=== PATIENT | female | born 1960 | race Caucasian/White ===

== ENCOUNTER → 2020-12-09 | Outpatient (CLI) | payer OTHER ==
[2020-11-18 15:00] VITALS: BP 132/83
[~2020-12-09] MED LIST: AMIT10TA PO; CETI-161 PO; IBUP-1007 PO; LISI2.5T12 PO; MULT-445 PO; PROVENTIL HFA6.7 G2 INH; UMEC1DIS IH; [UNRECOGNIZED DRUG - REMARK]
--- NOTE | 2020-12-09 11:52 | RAD ---
EXAM: Dual modality PET-CT Scan DATE: 12/09/2020 RADIOPHARMACEUTICAL: 13.97 mCi F-18 fluorodeoxyglucose (FDG) IV. CLINICAL HISTORY: Lung cancer staging. COMPARISON: 11/15/2020 and 11/11/2020 TECHNIQUE: Approximately 45 minutes after tracer administration, routine, attenuation-corrected Posit jhony Emission Tomography (PET) images were obtained from the level of the base of the skull through th e level of the mid thighs. Tomographic reconstructions are reviewed in coronal, transaxial and sagitt al planes. Non-contrast CT imaging was performed for attenuation correction and localization purpose s only. These images do not constitute a diagnostic-quality CT examination and were not used to diag nose disease independently of the PET images. The blood glucose level was 96 mg/dL at the time of FDG administration. *One or more of the following individualized dose reduction techniques were utilized for this examina tion: 1. Automated exposure control. 2. Adjustment of the mA and/or kV according to patient size. 3. Use of iterative reconstruction technique. FINDINGS: There is intense radiotracer activity with a maximum SUV of 8.1 associated with a 3.5 cm ma ss within the right lower lobe. There is intense radiotracer activity within maximum SUV of 6.8 withi n an adjacent 2.1 cm satellite nodule. There is no abnormal radiotracer activity above the blood pool associated with bilateral hilar lymph nodes, maximum SUV of which measures 2.6. There is no abnormal extrathoracic radiotracer activity to suggest malignancy. There is physiologic a ctivity within the bowel and renal collecting system. There is physiologic muscular activity and phys iologic activity involving the vocal cords. There is a small focus of increased radiotracer activity associated with the left nasal soft tissues which is likely inflammatory. There are similar suspected inflammatory or physiologic activity involving the posterior nasopharyngeal soft tissues. The CT portion of the exam demonstrates a 3.5 cm mass with adjacent 2.1 cm satellite mass within the right lower lobe. There is mild emphysema. There is no infiltrate, pleural effusion or pneumothorax. The heart is upper normal in size. No pathologically enlarged mediastinal or hilar lymph node is seen . There is a 1.6 cm left thyroid nodule. There is no mass effect or midline shift involving the visualized portions the brain. There is mild c erebral volume loss. There is no neck lymphadenopathy. No hepatic lesion is seen on this noncontrast exam. The gallbladder, pancreas, spleen and adrenal glands are unremarkable. No renal lesion is seen. There is no appendicitis. There is no bowel obstruction. The bladder, uterus and ovaries are unremark able. There is aortic atherosclerosis. There is no mesenteric or retroperitoneal lymphadenopathy. The re is degenerative change involving the spine. There is no acute or suspicious osseous lesion. IMPRESSION: 1. Radiotracer avid 3.5 cm right lower lobe mass with a maximum SUV of 8.1, consistent with reported biopsy-proven malignancy. There is an adjacent satellite nodule or metastatic perihilar lymph node me asuring 2.1 cm with a maximum SUV of 6.8. 2. Nonspecific radiotracer activity within bilateral hilar lymph nodes with a maximum SUV of 2.6. Thi s is not significantly above the blood pool. 3. No convincing abnormal extrathoracic radiotracer activity. There is physiologic activity described above 4. Pulmonary emphysema. 5. Small left thyroid nodule. This demonstrates no abnormal radiotracer activity and may be cystic. T his can be better assessed with a thyroid sonogram. 6. Note is made that indeterminate right renal lesion demonstrated on a prior contrast-enhanced CT is not well characterized on the current exam. Please refer to the prior CT report dated 11/11/2020 for f urther imaging recommendations. Electronically signed by: Leyla Garcia MD (12/09/2020 11:50 AM) [id number]
== END ==
LOC: PETSC 10:00
PROVIDERS: ATTEND Internal Medicine Hematology & Oncology
DX: C34.11 Malignant neoplasm of upper lobe, right bronchus or lung (principal); J43.9 Emphysema, unspecified; E04.1 Nontoxic single thyroid nodule; N28.9 Disorder of kidney and ureter, unspecified; I70.0 Atherosclerosis of aorta; M47.819 Spondylosis without myelopathy or radiculopathy, site unspecified
CPT/HCPCS: 78815; A9552

== ENCOUNTER → 2021-01-02 | Outpatient (CLI) | payer OTHER ==
[2020-11-18 15:00] VITALS: BP 132/83
[2021-01-02 14:57] LABS: BASO % 1 % (0-3); EOS # 0.1 x10^3/uL (0.0-0.7); EOS % 4 % (0-3); HEMATOCRIT 37.3 % (36.0-47.0); HEMOGLOBIN 12.4 g/dL (12.0-15.5); LYMPH # 1.2 x10^3/uL (1.0-4.8); LYMPH % 28 % (24-48); MEAN CORPUSCULAR HEMOGLOBIN 33 pg (25-35); MEAN CORPUSCULAR HGB CONC 33 g/dL (31-37); MEAN CORPUSCULAR VOLUME 99 fL (79-100); MONO # 0.3 x10^3/uL (0.0-1.1); MONO % 7 % (0-9); NEUT # 2.5 x10^3/uL (1.8-7.7); NEUT % 61 % (31-73); PLATELET COUNT 213 x10^3/uL (140-400); RED BLOOD COUNT 3.79 x10^6/uL (3.50-5.40); RED CELL DISTRIBUTION WIDTH 14.6 % (11.5-14.5); WHITE BLOOD COUNT 4.2 x10^3/uL (4.0-11.0)
[2021-01-02 16:05] LABS: CALCIUM 9.1 mg/dL (8.5-10.1); CREATININE 1.1 mg/dL (0.6-1.0); POTASSIUM 4.3 mmol/L (3.5-5.1)
[2021-01-02 16:11] LABS: ALBUMIN 3.3 g/dL (3.4-5.0); ALBUMIN/GLOBULIN RATIO 0.9 (1.0-1.7); TOTAL BILIRUBIN 0.1 mg/dL (0.2-1.0); TOTAL PROTEIN 6.9 g/dL (6.4-8.2)
== END ==
LOC: ONCLAB 14:04
PROVIDERS: ATTEND Internal Medicine Hematology & Oncology
DX: C34.11 Malignant neoplasm of upper lobe, right bronchus or lung (principal)
CPT/HCPCS: 36415; 80053; 85025

== ENCOUNTER 2021-01-21 23:39 | Emergency (ER) | payer SELFPAY ==
[~2021-01-21] VITALS: Ht 167.6 cm; Wt 86.4 kg
--- NOTE | 2021-01-22 00:05 | PHYS DOC ---
Past Medical History Smoking Status: Current Every Day Smoker General Adult EDM: Chief Complaint: OTHER COMPLAINTS HPI: HPI: Patient is a 60 year old year old female that presents for evaluation of a sinus infection. Patient has past medical history of lung cancer and is schedule for radiation therapy on Saturday. Patient states on Saturday she had a covid test performed that was ordered by her PCP and it was negative. While at the covid clinic patient was told that she may have a sinus infection and she needed to see her PCP for an Rx antibiotic. Patients PCP office was closed and patient was unable to follow up with her PCP. Patient states she called her onocologist office and was advised to come the the ER for admission to the hospital. Review of Systems: Review of Systems: Constitutional: Denies fever or chills. [] Eyes: Denies change in visual acuity. [] HENT: Positive nasal congestion denies sore throat. [] Respiratory: Denies cough or shortness of breath. [] Cardiovascular: Denies chest pain or edema. [] GI: Denies abdominal pain, nausea, vomiting, bloody stools or diarrhea. [] : Denies dysuria. [] Musculoskeletal: Denies back pain or joint pain. [] Integument: Denies rash. [] Neurologic: Denies headache, focal weakness or sensory changes. [] Endocrine: Denies polyuria or polydipsia. [] Lymphatic: Denies swollen glands. [] Psychiatric: Denies depression or anxiety. [] Heart Score: C/O Chest Pain: N/A Risk Factors: Risk Factors: DM, Current or recent (<one month) smoker, HTN, HLP, family history of CAD, obesity. Risk Scores: Score 0 - 3: 2.5% MACE over next 6 weeks - Discharge Home Score 4 - 6: 20.3% MACE over next 6 weeks - Admit for Clinical Observation Score 7 - 10: 72.7% MACE over next 6 weeks - Early Invasive Strategies Allergies: Allergies: Allergies Coded Allergies Type Severity Reaction Last Updated Verified Fish Containing Products Allergy Severe 11/17/20 Yes shellfish derived Allergy Severe 11/17/20 Yes shrimp Allergy Severe 11/17/20 Yes Physical Exam: PE: General: alert, no acute distress. Skin: warm, dry and intact, no erythema, no rash. HENT: bilateral external ears normal, oropharynx moist, nose normal. Head:: Normocephalic, atraumatic. Neck: Trachea midline. Eyes: EOMI, Normal conjunctiva, No drainage CARDIOVASCULAR: Regular rate and rhythm RESPIRATORY: No respiratory distress Back: Full range of motion. MUSCULOSKELETAL: Full range of motion of bilateral upper and lower extremities. GASTROINTESTINAL: Abdomen soft without rebound or guarding. NEUROLOGICAL: Alert and noted to person, place and time. No neurological deficits observed Psychiatric: Cooperative. Normal judgment EKG: EKG: [] Radiology/Procedures: Radiology/Procedures: [] Course & Med Decision Making: Course & Med Decision Making Pertinent Labs and Imaging studies reviewed. (See chart for details) [] Discussed patient with oncologist. Patient does not need to be admitted for her radiation therapy which is to start on Saturday. Patient's vital signs are stable. Patient states she was seen at a clinic advised that she has a sinus infection and will need antibiotic. I will place patient on Zithromax. Patient is to follow-up with her oncology appointment for treatment on Saturday. Marcela Disclaimer: Marcela Disclaimer: This electronic medical record was generated, in whole or in part, using a voice recognition dictation system. Departure Departure Impression: Primary Impression: URI (upper respiratory infection) Disposition: HOME / SELF CARE / HOMELESS Condition: STABLE Referrals: UNKNOWN PCP NAME (PCP) Patient Instructions: Upper Respiratory Infection, Adult Scripts Azithromycin (ZITHROMAX) 250 Mg Tablet 1 PKG PO UD, #6 TAB Prov: JESSEE MILES DO 01/22/21 JESSEE MILES DO Jan 22, 2021 00:05
[2021-01-22 00:28] VITALS: BP 117/56
[2021-01-22] MEDS ORDERED: AZIT250T PO (00:45)
== END 2021-01-22 02:45 | disposition home or self-care (01) ==
LOC: ER 23:39
DX: J06.9 Acute upper respiratory infection, unspecified (principal); Z91.013 Allergy to seafood; F17.200 Nicotine dependence, unspecified, uncomplicated
CPT/HCPCS: 99283

== ENCOUNTER → 2021-02-07 | Outpatient (CLI) | payer OTHER ==
[2021-01-22 00:28] VITALS: BP 117/56
[~2021-02-07] MED LIST changes: +AZIT250T PO
[2021-02-07 10:39] LABS: BASO % 1 % (0-3); EOS # 0.2 x10^3/uL (0.0-0.7); EOS % 5 % (0-3); HEMATOCRIT 36.4 % (36.0-47.0); LYMPH # 0.9 x10^3/uL (1.0-4.8); LYMPH % 24 % (24-48); MEAN CORPUSCULAR HEMOGLOBIN 33 pg (25-35); MEAN CORPUSCULAR HGB CONC 33 g/dL (31-37); MEAN CORPUSCULAR VOLUME 101 fL (79-100); MONO # 0.3 x10^3/uL (0.0-1.1); MONO % 7 % (0-9); NEUT # 2.5 x10^3/uL (1.8-7.7); NEUT % 64 % (31-73); PLATELET COUNT 212 x10^3/uL (140-400); RED BLOOD COUNT 3.61 x10^6/uL (3.50-5.40); RED CELL DISTRIBUTION WIDTH 15.2 % (11.5-14.5); WHITE BLOOD COUNT 3.9 x10^3/uL (4.0-11.0)
[2021-02-07 10:54] LABS: ALBUMIN 3.3 g/dL (3.4-5.0); ALBUMIN/GLOBULIN RATIO 0.8 (1.0-1.7); CALCIUM 8.3 mg/dL (8.5-10.1); CREATININE 1.1 mg/dL (0.6-1.0); TOTAL BILIRUBIN 0.2 mg/dL (0.2-1.0); TOTAL PROTEIN 7.2 g/dL (6.4-8.2)
== END ==
LOC: ONCLAB 10:27
PROVIDERS: ATTEND Physician Assistant
DX: C34.11 Malignant neoplasm of upper lobe, right bronchus or lung (principal)
CPT/HCPCS: 36415; 80053; 83615; 83735; 85025

== ENCOUNTER → 2021-02-08 | Outpatient (CLI) | payer OTHER ==
[~2021-02-08] VITALS: Ht 167.6 cm; Wt 87.3 kg
[~2021-02-08] MED LIST changes: +LIDOCAINE 1%/EPI 1:100,000 20 ML VIAL. INJ ONE; +LIDOCAINE 1%/EPI 1:100,000 20 ML VIAL. ONE; +MIDAZOLAM HCL/PF 2 MG/2 ML VIAL. IV ONE; +MIDAZOLAM HCL/PF 2 MG/2 ML VIAL. ONE; +ceFAZolin SODIUM IV Push 1 GM VIAL. IVP ONE; +fentaNYL PF VIAL 100 MCG/2 ML VIAL IV ONE; +fentaNYL PF VIAL 100 MCG/2 ML VIAL ONE
[2021-02-08 07:40] VITALS: BP 114/64
[2021-02-08 09:52] VITALS: BP 96/73
[2021-02-08 10:00] VITALS: BP 104/82
--- NOTE | 2021-02-08 10:02 | RAD ---
PROCEDURE: Fluoroscopically and ultrasound-guided placement of left internal jugular tunnel central v enous catheter with port (Bard PowerPort, [place] tip ). Clinical Indication: Right lung cancer Discussion: The risks and benefits of the procedure were discussed with the patient and/or their bottling equipment sales representative. Informed consent was obtained. The patient was brought to the fluoroscopy suite and placed in supine position. A time out procedure was performed. The right neck and chest were prepped and draped using maximum sterile barrier technique including th e use of: Current guideline approved cutaneous antisepsis, a large sterile sheet to establish a steri le field. Additionally the calender let off operator wore a hat, mask, sterile gloves, a sterile gown during the proce dure as well as practiced acceptable hand hygiene prior to placing the port. Ultrasound-guided access: Ultrasound evaluation showed the right jugular vein to be patent and compr essible. 1 % lidocaine with epinephrine was administered to the skin and subcutaneous tissues overlyi ng the right neck and chest. Under direct ultrasound guidance a single wall puncture was made followe d by tract dilation and placement of a sheath. An ultrasound image was saved and sent to PACS. Next, an incision was made in an infraclavicular location and a pocket created. The catheter was tunneled between the pocket and the venotomy site. The catheter was advanced through the peel away sheath, u nder fluoroscopic guidance, such that it's tip was in the mid right atrium. The catheter was connecte d to the port reservoir. The port was accessed and found to flush and aspirate normally. The reservoi r was then placed into the subcutaneous pocket. The wound was closed in layers using 3 Vicryl and 4- 0 Vicryl suture. Dermabond was applied overlying the wound, and venotomy site. The patient tolerated procedure without immediate complication. Sedation: Conscious sedation was performed for 30 minutes. Sedation was carried out while the patie nt was continually monitored by a member of the Radiology nursing staff. Continual cardiopulmonary m onitoring was carried out during the procedure. The patient tolerated the procedure well and there w ere no immediate complications. Fluoroscopy time: 0.5 mins Dose area product 1 [place] centimeter squared Impression: Successful ultrasound and fluoroscopically guided placement of right internal jugular saad cherelle central venous catheter with port (Bard PowerPort, [place] tip). Electronically signed by: Brandon Long MD (02/08/2021 10:00 AM) [id number]
--- NOTE | 2021-02-08 10:02 | RAD ---
PROCEDURE: Fluoroscopically and ultrasound-guided placement of left internal jugular tunnel central v enous catheter with port (Bard PowerPort, [place] tip ). Clinical Indication: Right lung cancer Discussion: The risks and benefits of the procedure were discussed with the patient and/or their financial foundations representative. Informed consent was obtained. The patient was brought to the fluoroscopy suite and placed in supine position. A time out procedure was performed. The right neck and chest were prepped and draped using maximum sterile barrier technique including th e use of: Current guideline approved cutaneous antisepsis, a large sterile sheet to establish a steri le field. Additionally the silk winding machine operator wore a hat, mask, sterile gloves, a sterile gown during the proce dure as well as practiced acceptable hand hygiene prior to placing the port. Ultrasound-guided access: Ultrasound evaluation showed the right jugular vein to be patent and compr essible. 1 % lidocaine with epinephrine was administered to the skin and subcutaneous tissues overlyi ng the right neck and chest. Under direct ultrasound guidance a single wall puncture was made followe d by tract dilation and placement of a sheath. An ultrasound image was saved and sent to PACS. Next, an incision was made in an infraclavicular location and a pocket created. The catheter was tunneled between the pocket and the venotomy site. The catheter was advanced through the peel away sheath, u nder fluoroscopic guidance, such that it's tip was in the mid right atrium. The catheter was connecte d to the port reservoir. The port was accessed and found to flush and aspirate normally. The reservoi r was then placed into the subcutaneous pocket. The wound was closed in layers using 3 Vicryl and 4- 0 Vicryl suture. Dermabond was applied overlying the wound, and venotomy site. The patient tolerated procedure without immediate complication. Sedation: Conscious sedation was performed for 30 minutes. Sedation was carried out while the patie nt was continually monitored by a member of the Radiology nursing staff. Continual cardiopulmonary m onitoring was carried out during the procedure. The patient tolerated the procedure well and there w ere no immediate complications. Fluoroscopy time: 0.5 mins Dose area product 1 [place] centimeter squared Impression: Successful ultrasound and fluoroscopically guided placement of right internal jugular saad cherelle central venous catheter with port (Bard PowerPort, [place] tip). Electronically signed by: Brandon Long MD (02/08/2021 10:00 AM) [id number]
[2021-02-08 10:06] VITALS: BP 102/75
[2021-02-08 10:20] VITALS: BP 116/69
--- NOTE | 2021-02-08 10:30 | NUR ---
Order received to discharge patient after 30 min sitting up, no bleeding. Cancer Center notified. Verified w/ Annette in Cancer Center that patient could eat and notified that patient needs transportation. Patient states she has the phone number that was provided to her by her insurance. Patient's VS stable. Instructions provided on incision care, port. Verbalized understanding.
== END | disposition home or self-care (01) ==
LOC: INTRAD 06:58
PROVIDERS: ATTEND Physician Assistant
DX: Z45.2 Encounter for adjustment and management of vascular access device (principal); C34.91 Malignant neoplasm of unspecified part of right bronchus or lung; E78.00 Pure hypercholesterolemia, unspecified; J44.9 Chronic obstructive pulmonary disease, unspecified; E66.9 Obesity, unspecified; K21.9 Gastro-esophageal reflux disease without esophagitis; F17.210 Nicotine dependence, cigarettes, uncomplicated; Z79.899 Other long term (current) drug therapy; Z98.890 Other specified postprocedural states; Z91.013 Allergy to seafood; Z88.8 Allergy status to other drugs, medicaments and biological substances; Z72.89 Other problems related to lifestyle
CPT/HCPCS: 36561; 76937; 77001; 87426; 99152; 99153; C1788; C1892; J0690; J2250; J3010; J3490

== ENCOUNTER → 2021-02-17 | Outpatient (CLI) | payer OTHER ==
[2021-02-08 10:20] VITALS: BP 116/69
[~2021-02-17] MED LIST changes: -LIDOCAINE 1%/EPI 1:100,000 20 ML VIAL. INJ ONE; -LIDOCAINE 1%/EPI 1:100,000 20 ML VIAL. ONE; -MIDAZOLAM HCL/PF 2 MG/2 ML VIAL. IV ONE; -MIDAZOLAM HCL/PF 2 MG/2 ML VIAL. ONE; -ceFAZolin SODIUM IV Push 1 GM VIAL. IVP ONE; -fentaNYL PF VIAL 100 MCG/2 ML VIAL IV ONE; -fentaNYL PF VIAL 100 MCG/2 ML VIAL ONE
[2021-02-17 10:02] LABS: BASO % 1 % (0-3); EOS # 0.1 x10^3/uL (0.0-0.7); EOS % 2 % (0-3); HEMATOCRIT 34.2 % (36.0-47.0); HEMOGLOBIN 11.7 g/dL (12.0-15.5); LYMPH # 0.9 x10^3/uL (1.0-4.8); LYMPH % 20 % (24-48); MEAN CORPUSCULAR HEMOGLOBIN 34 pg (25-35); MEAN CORPUSCULAR HGB CONC 34 g/dL (31-37); MEAN CORPUSCULAR VOLUME 99 fL (79-100); MONO # 0.3 x10^3/uL (0.0-1.1); MONO % 7 % (0-9); NEUT % 70 % (31-73); PLATELET COUNT 221 x10^3/uL (140-400); RED BLOOD COUNT 3.46 x10^6/uL (3.50-5.40); RED CELL DISTRIBUTION WIDTH 14.9 % (11.5-14.5); WHITE BLOOD COUNT 4.3 x10^3/uL (4.0-11.0)
[2021-02-17 10:12] LABS: CALCIUM 8.3 mg/dL (8.5-10.1); CREATININE 0.9 mg/dL (0.6-1.0); GFR 64.3; POTASSIUM 3.7 mmol/L (3.5-5.1)
[2021-02-17 10:16] LABS: ALBUMIN 3.1 g/dL (3.4-5.0); ALBUMIN/GLOBULIN RATIO 0.8 (1.0-1.7); TOTAL BILIRUBIN 0.2 mg/dL (0.2-1.0); TOTAL PROTEIN 6.9 g/dL (6.4-8.2)
== END ==
LOC: ONCLAB 09:35
PROVIDERS: ATTEND Internal Medicine Hematology & Oncology
DX: C34.11 Malignant neoplasm of upper lobe, right bronchus or lung (principal)
CPT/HCPCS: 36415; 80053; 85025

== ENCOUNTER → 2021-02-23 | Outpatient (CLI) | payer OTHER ==
[2021-02-08 10:20] VITALS: BP 116/69
[~2021-02-23] MED LIST changes: +CONTRAST GIVEN. MC PRN; +IODIXANOL 320 MG/ML 50ML VIAL. IV ONE; +IODIXANOL 320 MG/ML 50ML VIAL. ONE
--- NOTE | 2021-02-23 11:47 | NUR ---
Dr. Long flushed port and took pictures. Patient's port was slightly curled and he was able to massage it back into position. Blood return and image guidance verified placement. Patient was deaccessed because she wasn't having her CT and MRI scans today after further review. Patient to follow up with Dr. Perez regarding scans and treatment plan.
--- NOTE | 2021-02-24 11:41 | RAD ---
Fluoroscopic evaluation of left internal jugular port 02/23/2021 INDICATION: Port will not aspirate. Flushes normally. Discussion: Fluoroscopic evaluation of the patient's left internal jugular power port was performed. Small amount of contrast was administered. Initially the port catheter was mildly retracted with tip in the superior vena cava. The supraclavicular lesion was massaged and the catheter tip extends back to the cavoatrial junction. The port and flush and aspirate normally. Contrast was administered demon strating no extravasation fracture. Port was flushed and secured in place. Total fluoroscopy time: 0.9 minutes Dose area product 14 [place] centimeter squared IMPRESSION: Partial retraction of port catheter, resolved with palpation. If the portion continually failed to aspirate, or otherwise be amenable to use, replacement may need to be considered. Electronically signed by: Brandon Long MD (02/24/2021 11:39 AM) [id number]
== END | disposition home or self-care (01) ==
LOC: INTRAD 10:50
PROVIDERS: ATTEND Surgery
DX: Z45.2 Encounter for adjustment and management of vascular access device (principal); E78.00 Pure hypercholesterolemia, unspecified; J44.9 Chronic obstructive pulmonary disease, unspecified; K21.9 Gastro-esophageal reflux disease without esophagitis; F17.210 Nicotine dependence, cigarettes, uncomplicated; Z98.51 Tubal ligation status; Z98.890 Other specified postprocedural states; Z79.899 Other long term (current) drug therapy; Z72.89 Other problems related to lifestyle; Z91.013 Allergy to seafood; Z88.8 Allergy status to other drugs, medicaments and biological substances
CPT/HCPCS: 36598; Q9967; 77001

== ENCOUNTER → 2021-02-24 | Outpatient (CLI) | payer OTHER ==
[2021-02-08 10:20] VITALS: BP 116/69
[~2021-02-24] MED LIST changes: -CONTRAST GIVEN. MC PRN; -IODIXANOL 320 MG/ML 50ML VIAL. IV ONE; -IODIXANOL 320 MG/ML 50ML VIAL. ONE
[2021-02-24 10:32] LABS: CALCIUM 9.1 mg/dL (8.5-10.1); CREATININE 1.1 mg/dL (0.6-1.0); POTASSIUM 4.4 mmol/L (3.5-5.1)
[2021-02-24 10:38] LABS: ALBUMIN 3.2 g/dL (3.4-5.0); ALBUMIN/GLOBULIN RATIO 0.8 (1.0-1.7); TOTAL BILIRUBIN 0.2 mg/dL (0.2-1.0); TOTAL PROTEIN 7.2 g/dL (6.4-8.2)
[2021-02-24 10:49] LABS: BASO % 1 % (0-3); EOS # 0.1 x10^3/uL (0.0-0.7); EOS % 3 % (0-3); HEMATOCRIT 35.4 % (36.0-47.0); HEMOGLOBIN 11.7 g/dL (12.0-15.5); LYMPH # 0.7 x10^3/uL (1.0-4.8); LYMPH % 22 % (24-48); MEAN CORPUSCULAR HEMOGLOBIN 33 pg (25-35); MEAN CORPUSCULAR HGB CONC 33 g/dL (31-37); MEAN CORPUSCULAR VOLUME 100 fL (79-100); MONO # 0.2 x10^3/uL (0.0-1.1); MONO % 7 % (0-9); NEUT # 2.1 x10^3/uL (1.8-7.7); NEUT % 68 % (31-73); PLATELET COUNT 226 x10^3/uL (140-400); RED BLOOD COUNT 3.56 x10^6/uL (3.50-5.40); WHITE BLOOD COUNT 3.1 x10^3/uL (4.0-11.0)
== END ==
LOC: ONCLAB 09:31
PROVIDERS: ATTEND Physician Assistant
DX: C34.11 Malignant neoplasm of upper lobe, right bronchus or lung (principal)
CPT/HCPCS: 36415; 80053; 85025

== ENCOUNTER → 2021-03-09 | Outpatient (CLI) | payer OTHER ==
[2021-02-08 10:20] VITALS: BP 116/69
[2021-03-09 09:10] LABS: BASO % 1 % (0-3); EOS % 2 % (0-3); HEMATOCRIT 32.6 % (36.0-47.0); HEMOGLOBIN 10.9 g/dL (12.0-15.5); LYMPH # 0.6 x10^3/uL (1.0-4.8); LYMPH % 25 % (24-48); MEAN CORPUSCULAR HEMOGLOBIN 33 pg (25-35); MEAN CORPUSCULAR HGB CONC 33 g/dL (31-37); MEAN CORPUSCULAR VOLUME 99 fL (79-100); MONO # 0.2 x10^3/uL (0.0-1.1); MONO % 9 % (0-9); NEUT # 1.5 x10^3/uL (1.8-7.7); NEUT % 64 % (31-73); PLATELET COUNT 144 x10^3/uL (140-400); RED CELL DISTRIBUTION WIDTH 15.2 % (11.5-14.5); WHITE BLOOD COUNT 2.4 x10^3/uL (4.0-11.0)
[2021-03-09 09:20] LABS: CALCIUM 9.2 mg/dL (8.5-10.1); CREATININE 0.8 mg/dL (0.6-1.0); GFR 73.7; POTASSIUM 3.8 mmol/L (3.5-5.1)
[2021-03-09 09:26] LABS: ALBUMIN 3.4 g/dL (3.4-5.0); ALBUMIN/GLOBULIN RATIO 0.9 (1.0-1.7); TOTAL BILIRUBIN 0.2 mg/dL (0.2-1.0); TOTAL PROTEIN 7.2 g/dL (6.4-8.2)
== END ==
LOC: ONCLAB 08:49
PROVIDERS: ATTEND Internal Medicine Hematology & Oncology
DX: C34.11 Malignant neoplasm of upper lobe, right bronchus or lung (principal)
CPT/HCPCS: 36415; 80053; 83615; 85025

== ENCOUNTER 2021-03-14 07:40 | Outpatient (CLI) | payer OTHER ==
[~2021-03-14] VITALS: Ht 167.6 cm; Wt 87.0 kg
[2021-03-14 09:21] VITALS: BP 116/67
[2021-03-14 10:33] LABS: CALCIUM 8.7 mg/dL (8.5-10.1); CREATININE 0.9 mg/dL (0.6-1.0); GFR 64.3; POTASSIUM 3.8 mmol/L (3.5-5.1)
[2021-03-14 10:47] LABS: BASO % 0 % (0-3); EOS # 0.1 x10^3/uL (0.0-0.7); EOS % 1 % (0-3); HEMATOCRIT 33.1 % (36.0-47.0); HEMOGLOBIN 11.4 g/dL (12.0-15.5); LYMPH # 0.9 x10^3/uL (1.0-4.8); LYMPH % 13 % (24-48); MEAN CORPUSCULAR HEMOGLOBIN 35 pg (25-35); MEAN CORPUSCULAR HGB CONC 34 g/dL (31-37); MEAN CORPUSCULAR VOLUME 101 fL (79-100); MONO # 0.4 x10^3/uL (0.0-1.1); MONO % 6 % (0-9); NEUT # 5.7 x10^3/uL (1.8-7.7); NEUT % 80 % (31-73); PLATELET COUNT 181 x10^3/uL (140-400); RED CELL DISTRIBUTION WIDTH 16.4 % (11.5-14.5); WHITE BLOOD COUNT 7.1 x10^3/uL (4.0-11.0)
[2021-03-14 10:59] LABS: PROTHROMBIN TIME PATIENT 11.6 SEC (11.7-14.0)
[2021-03-14] MEDS ORDERED: LIDOCAINE 1%/EPI 1:100,000 20 ML VIAL. ONE (12:45)
[2021-03-14] MEDS ORDERED: HEPARIN PF 500 UNIT/5 ML DISP.SYRIN. IVP ONE ×2 (12:57→13:30)
[2021-03-14] MEDS ORDERED: MIDAZOLAM HCL/PF 2 MG/2 ML VIAL. ONE ×2 (13:09→13:36)
[2021-03-14] MEDS ORDERED: fentaNYL PF VIAL 100 MCG/2 ML VIAL ONE (13:09)
[2021-03-14] MEDS ORDERED: LIDOCAINE 1%/EPI 1:100,000 20 ML VIAL. INJ ONE (13:30)
[2021-03-14] MEDS ORDERED: fentaNYL PF VIAL 100 MCG/2 ML VIAL IV ONE (13:30)
[2021-03-14] MEDS ORDERED: MIDAZOLAM HCL/PF 2 MG/2 ML VIAL. IV ONE (13:30)
[2021-03-14 14:08] VITALS: BP 123/72
[2021-03-14 14:20] VITALS: BP 131/76
[2021-03-14 14:34] VITALS: BP 123/66
--- NOTE | 2021-03-14 15:41 | NUR ---
PIV removed, VS stable. Dressing on L and right chest clean, dry, intact. No bleeding. Instructions provided on sedation, site care. Patient verbalized understanding. Patient's chemo from 03/14 moved to 03/15, RN spoke w/ cancer care center-- patient aware and states transportation will be at her house in the morning. All belongings, including cell phone and purse, taken w/ patient at time of d/c. Transportation taking patient home.
--- NOTE | 2021-03-14 16:08 | RAD ---
03/14/2021 Procedures: 1. Removal of left internal jugular port 2. Fluoroscopically and ultrasound-guided placement of right internal jugular tunnel central venous c atheter with port ( Clinical Indication: Lung cancer. Malfunctioning left-sided port. Discussion: The risks and benefits of the procedure were discussed with the patient and/or their regional sales representative. Informed consent was obtained. The patient was brought to the fluoroscopy suite and placed in supine position. A time out procedure was performed. The bilateral neck and chest were prepped and draped using maximum sterile barrier technique includi ng the use of: Current guideline approved cutaneous antisepsis, a large sterile sheet to establish a sterile field. Additionally the pinking machine operator wore a hat, mask, sterile gloves, a sterile gown during the procedure as well as practiced acceptable hand hygiene prior to the procedure. Fluoroscopic evaluation of the left-sided port demonstrates the catheter to be retracted and curled i n the neck. This is a recurrent problem. 1% lidocaine was administered over the port reservoir. A sma ll incision was made. The reservoir and catheter were removed intact. Ultrasound-guided access: Ultrasound evaluation showed the right jugular vein to be patent and compr essible. 1 % lidocaine with epinephrine was administered to the skin and subcutaneous tissues overlyi ng the right neck and chest. Under direct ultrasound guidance a single wall puncture was made followe d by tract dilation and placement of a sheath. An ultrasound image was saved and sent to PACS. Next, an incision was made in an infraclavicular location and a pocket created. The catheter was tunneled between the pocket and the venotomy site. The catheter was advanced through the peel away sheath, u nder fluoroscopic guidance, such that it's tip was in the mid right atrium. The catheter was connecte d to the port reservoir. The port was accessed and found to flush and aspirate normally. The reservoi r was then placed into the subcutaneous pocket. The wound was closed with 4-0 Vicryl suture and [place] montez The patient tolerated procedure without immediate complication. Sedation: Conscious sedation was performed for 49 minutes. while the patient was continually monit ored by a member of the Radiology nursing staff. Continual cardiopulmonary monitoring was carried ou t during the procedure. The patient tolerated the procedure well and there were no immediate complic ations. Fluoroscopy time: 0.5 mins Total fluoroscopy time 5 [place] centimeter squared Impression: 1. Removal of left internal jugular port 2. Successful ultrasound and fluoroscopically guided placement of right internal jugular tunnel centr al venous catheter with port Electronically signed by: Brandon Long MD (03/14/2021 4:05 PM) [id number]
--- NOTE | 2021-03-14 16:08 | RAD ---
03/14/2021 Procedures: 1. Removal of left internal jugular port 2. Fluoroscopically and ultrasound-guided placement of right internal jugular tunnel central venous c atheter with port ( Clinical Indication: Lung cancer. Malfunctioning left-sided port. Discussion: The risks and benefits of the procedure were discussed with the patient and/or their pharmaceutical sales representative. Informed consent was obtained. The patient was brought to the fluoroscopy suite and placed in supine position. A time out procedure was performed. The bilateral neck and chest were prepped and draped using maximum sterile barrier technique includi ng the use of: Current guideline approved cutaneous antisepsis, a large sterile sheet to establish a sterile field. Additionally the glycerine plant operator wore a hat, mask, sterile gloves, a sterile gown during the procedure as well as practiced acceptable hand hygiene prior to the procedure. Fluoroscopic evaluation of the left-sided port demonstrates the catheter to be retracted and curled i n the neck. This is a recurrent problem. 1% lidocaine was administered over the port reservoir. A sma ll incision was made. The reservoir and catheter were removed intact. Ultrasound-guided access: Ultrasound evaluation showed the right jugular vein to be patent and compr essible. 1 % lidocaine with epinephrine was administered to the skin and subcutaneous tissues overlyi ng the right neck and chest. Under direct ultrasound guidance a single wall puncture was made followe d by tract dilation and placement of a sheath. An ultrasound image was saved and sent to PACS. Next, an incision was made in an infraclavicular location and a pocket created. The catheter was tunneled between the pocket and the venotomy site. The catheter was advanced through the peel away sheath, u nder fluoroscopic guidance, such that it's tip was in the mid right atrium. The catheter was connecte d to the port reservoir. The port was accessed and found to flush and aspirate normally. The reservoi r was then placed into the subcutaneous pocket. The wound was closed with 4-0 Vicryl suture and [place] montez The patient tolerated procedure without immediate complication. Sedation: Conscious sedation was performed for 49 minutes. while the patient was continually monit ored by a member of the Radiology nursing staff. Continual cardiopulmonary monitoring was carried ou t during the procedure. The patient tolerated the procedure well and there were no immediate complic ations. Fluoroscopy time: 0.5 mins Total fluoroscopy time 5 [place] centimeter squared Impression: 1. Removal of left internal jugular port 2. Successful ultrasound and fluoroscopically guided placement of right internal jugular tunnel centr al venous catheter with port Electronically signed by: Brandon Long MD (03/14/2021 4:05 PM) [id number]
--- NOTE | 2021-03-14 16:08 | RAD ---
03/14/2021 Procedures: 1. Removal of left internal jugular port 2. Fluoroscopically and ultrasound-guided placement of right internal jugular tunnel central venous c atheter with port ( Clinical Indication: Lung cancer. Malfunctioning left-sided port. Discussion: The risks and benefits of the procedure were discussed with the patient and/or their solar sales representative. Informed consent was obtained. The patient was brought to the fluoroscopy suite and placed in supine position. A time out procedure was performed. The bilateral neck and chest were prepped and draped using maximum sterile barrier technique includi ng the use of: Current guideline approved cutaneous antisepsis, a large sterile sheet to establish a sterile field. Additionally the stove carriage operator wore a hat, mask, sterile gloves, a sterile gown during the procedure as well as practiced acceptable hand hygiene prior to the procedure. Fluoroscopic evaluation of the left-sided port demonstrates the catheter to be retracted and curled i n the neck. This is a recurrent problem. 1% lidocaine was administered over the port reservoir. A sma ll incision was made. The reservoir and catheter were removed intact. Ultrasound-guided access: Ultrasound evaluation showed the right jugular vein to be patent and compr essible. 1 % lidocaine with epinephrine was administered to the skin and subcutaneous tissues overlyi ng the right neck and chest. Under direct ultrasound guidance a single wall puncture was made followe d by tract dilation and placement of a sheath. An ultrasound image was saved and sent to PACS. Next, an incision was made in an infraclavicular location and a pocket created. The catheter was tunneled between the pocket and the venotomy site. The catheter was advanced through the peel away sheath, u nder fluoroscopic guidance, such that it's tip was in the mid right atrium. The catheter was connecte d to the port reservoir. The port was accessed and found to flush and aspirate normally. The reservoi r was then placed into the subcutaneous pocket. The wound was closed with 4-0 Vicryl suture and [place] montez The patient tolerated procedure without immediate complication. Sedation: Conscious sedation was performed for 49 minutes. while the patient was continually monit ored by a member of the Radiology nursing staff. Continual cardiopulmonary monitoring was carried ou t during the procedure. The patient tolerated the procedure well and there were no immediate complic ations. Fluoroscopy time: 0.5 mins Total fluoroscopy time 5 [place] centimeter squared Impression: 1. Removal of left internal jugular port 2. Successful ultrasound and fluoroscopically guided placement of right internal jugular tunnel centr al venous catheter with port Electronically signed by: Brandon Long MD (03/14/2021 4:05 PM) [id number]
== END 2021-03-14 15:44 | disposition home or self-care (01) ==
LOC: INTRAD 07:40
PROVIDERS: ATTEND Physician Assistant
DX: Z45.2 Encounter for adjustment and management of vascular access device (principal); C34.32 Malignant neoplasm of lower lobe, left bronchus or lung; E78.00 Pure hypercholesterolemia, unspecified; J44.9 Chronic obstructive pulmonary disease, unspecified; E66.9 Obesity, unspecified; K21.9 Gastro-esophageal reflux disease without esophagitis; F17.210 Nicotine dependence, cigarettes, uncomplicated; Z79.899 Other long term (current) drug therapy; Z98.51 Tubal ligation status; Z98.890 Other specified postprocedural states; Z72.89 Other problems related to lifestyle; Z91.013 Allergy to seafood; Z88.8 Allergy status to other drugs, medicaments and biological substances; Z20.822 Contact with and (suspected) exposure to COVID-19
CPT/HCPCS: 36415; 36561; 36590; 76937; 77001; 80048; 85025; 85610; 87426; 99152; 99153; C1788; C1892; J0690; J1642; J2250; J3010; J3490

== ENCOUNTER → 2021-03-22 | Outpatient (CLI) | payer OTHER ==
[2021-03-14 14:34] VITALS: BP 123/66
[2021-03-22 12:12] LABS: BASO % 1 % (0-3); EOS % 1 % (0-3); HEMATOCRIT 34.5 % (36.0-47.0); HEMOGLOBIN 11.5 g/dL (12.0-15.5); LYMPH # 0.6 x10^3/uL (1.0-4.8); LYMPH % 28 % (24-48); MEAN CORPUSCULAR HEMOGLOBIN 34 pg (25-35); MEAN CORPUSCULAR HGB CONC 33 g/dL (31-37); MEAN CORPUSCULAR VOLUME 101 fL (79-100); MONO # 0.1 x10^3/uL (0.0-1.1); MONO % 5 % (0-9); NEUT # 1.5 x10^3/uL (1.8-7.7); NEUT % 65 % (31-73); PLATELET COUNT 202 x10^3/uL (140-400); RED CELL DISTRIBUTION WIDTH 16.9 % (11.5-14.5); WHITE BLOOD COUNT 2.2 x10^3/uL (4.0-11.0)
[2021-03-22 12:19] LABS: CALCIUM 9.4 mg/dL (8.5-10.1); GFR 56.9
[2021-03-22 12:26] LABS: ALBUMIN 3.7 g/dL (3.4-5.0); ALBUMIN/GLOBULIN RATIO 1.1 (1.0-1.7); TOTAL BILIRUBIN 0.4 mg/dL (0.2-1.0); TOTAL PROTEIN 7.1 g/dL (6.4-8.2)
== END ==
LOC: ONCLAB 11:58
PROVIDERS: ATTEND Internal Medicine Hematology & Oncology
DX: C34.11 Malignant neoplasm of upper lobe, right bronchus or lung (principal)
CPT/HCPCS: 36415; 80053; 85025

== ENCOUNTER → 2021-03-27 | Outpatient (CLI) | payer SELFPAY ==
[2021-03-14 14:34] VITALS: BP 123/66
[2021-03-27 10:53] LABS: BASO % 1 % (0-3); EOS % 1 % (0-3); HEMATOCRIT 31.9 % (36.0-47.0); HEMOGLOBIN 10.4 g/dL (12.0-15.5); LYMPH # 0.6 x10^3/uL (1.0-4.8); LYMPH % 33 % (24-48); MEAN CORPUSCULAR HEMOGLOBIN 33 pg (25-35); MEAN CORPUSCULAR HGB CONC 33 g/dL (31-37); MEAN CORPUSCULAR VOLUME 102 fL (79-100); MONO # 0.2 x10^3/uL (0.0-1.1); MONO % 11 % (0-9); NEUT # 0.9 x10^3/uL (1.8-7.7); NEUT % 54 % (31-73); PLATELET COUNT 216 x10^3/uL (140-400); RED BLOOD COUNT 3.12 x10^6/uL (3.50-5.40); RED CELL DISTRIBUTION WIDTH 17.2 % (11.5-14.5)
[2021-03-27 10:55] LABS: CALCIUM 8.5 mg/dL (8.5-10.1); CREATININE 1.1 mg/dL (0.6-1.0); POTASSIUM 4.9 mmol/L (3.5-5.1)
[2021-03-27 11:20] LABS: WHITE BLOOD COUNT 1.8 x10^3/uL (4.0-11.0)
== END ==
LOC: ONCLAB 10:00
PROVIDERS: ATTEND Physician Assistant
DX: C34.11 Malignant neoplasm of upper lobe, right bronchus or lung (principal)
CPT/HCPCS: 36415; 80048; 85025

== ENCOUNTER → 2021-03-29 | Outpatient (CLI) | payer OTHER ==
[2021-03-14 14:34] VITALS: BP 123/66
[2021-03-29 10:38] LABS: BASO % 0 % (0-3); EOS % 1 % (0-3); HEMATOCRIT 28.7 % (36.0-47.0); HEMOGLOBIN 9.8 g/dL (12.0-15.5); LYMPH # 0.8 x10^3/uL (1.0-4.8); LYMPH % 11 % (24-48); MEAN CORPUSCULAR HEMOGLOBIN 34 pg (25-35); MEAN CORPUSCULAR HGB CONC 34 g/dL (31-37); MEAN CORPUSCULAR VOLUME 101 fL (79-100); MONO # 0.5 x10^3/uL (0.0-1.1); MONO % 7 % (0-9); NEUT # 5.7 x10^3/uL (1.8-7.7); NEUT % 80 % (31-73); PLATELET COUNT 234 x10^3/uL (140-400); RED BLOOD COUNT 2.84 x10^6/uL (3.50-5.40); RED CELL DISTRIBUTION WIDTH 16.9 % (11.5-14.5); WHITE BLOOD COUNT 7.1 x10^3/uL (4.0-11.0)
[2021-03-29 10:50] LABS: CALCIUM 9.5 mg/dL (8.5-10.1); CREATININE 1.6 mg/dL (0.6-1.0); GFR 33.1; POTASSIUM 4.4 mmol/L (3.5-5.1)
[2021-03-29 10:56] LABS: ALBUMIN 3.3 g/dL (3.4-5.0); ALBUMIN/GLOBULIN RATIO 0.9 (1.0-1.7); TOTAL BILIRUBIN 0.3 mg/dL (0.2-1.0); TOTAL PROTEIN 6.8 g/dL (6.4-8.2)
[2021-03-29 13:05] LABS: BILIRUBIN,URINE NEGATIVE (NEG); CLARITY,URINE CLEAR; COLOR,URINE YELLOW; NITRITE,URINE NEGATIVE (NEG); PH,URINE 5.5 (<5.0-8.0); PROTEIN,URINE NEGATIVE (NEG-TRACE); UROBILINOGEN,URINE 0.2 mg/dL (0.2 mg/dL)
[2021-03-29 13:11] LABS: BACTERIA,URINE FEW /HPF (0-FEW); RBC,URINE 0 /HPF (0-2); WBC,URINE OCC /HPF (0-4)
== END ==
LOC: ONCLAB 10:25
PROVIDERS: ATTEND Physician Assistant
DX: C34.11 Malignant neoplasm of upper lobe, right bronchus or lung (principal)
CPT/HCPCS: 36415; 80053; 81001; 85025

== ENCOUNTER → 2021-04-04 | Outpatient (CLI) | payer OTHER ==
[2021-03-14 14:34] VITALS: BP 123/66
[2021-04-04 10:24] LABS: BASO % 0 % (0-3); EOS % 1 % (0-3); HEMATOCRIT 27.8 % (36.0-47.0); HEMOGLOBIN 9.2 g/dL (12.0-15.5); LYMPH # 0.6 x10^3/uL (1.0-4.8); LYMPH % 16 % (24-48); MEAN CORPUSCULAR HEMOGLOBIN 34 pg (25-35); MEAN CORPUSCULAR HGB CONC 33 g/dL (31-37); MEAN CORPUSCULAR VOLUME 103 fL (79-100); MONO # 0.5 x10^3/uL (0.0-1.1); MONO % 13 % (0-9); NEUT # 2.5 x10^3/uL (1.8-7.7); NEUT % 70 % (31-73); PLATELET COUNT 167 x10^3/uL (140-400); RED BLOOD COUNT 2.69 x10^6/uL (3.50-5.40); WHITE BLOOD COUNT 3.6 x10^3/uL (4.0-11.0)
[2021-04-04 10:31] LABS: CALCIUM 8.4 mg/dL (8.5-10.1); CREATININE 0.9 mg/dL (0.6-1.0); GFR 64.3; POTASSIUM 4.4 mmol/L (3.5-5.1)
[2021-04-04 10:37] LABS: ALBUMIN/GLOBULIN RATIO 0.8 (1.0-1.7); TOTAL BILIRUBIN 0.2 mg/dL (0.2-1.0); TOTAL PROTEIN 6.9 g/dL (6.4-8.2)
== END | disposition home or self-care (01) ==
LOC: ONCLAB 09:45
PROVIDERS: ATTEND Physician Assistant
DX: C34.11 Malignant neoplasm of upper lobe, right bronchus or lung (principal)
CPT/HCPCS: 36415; 80053; 85025

== ENCOUNTER → 2021-04-04 | Outpatient (CLI) | payer OTHER ==
[2021-03-14 14:34] VITALS: BP 123/66
--- NOTE | 2021-04-04 11:48 | RAD ---
EXAMINATION: XR CHEST 2V CLINICAL HISTORY: LUNG ADENOCARCINOMA. EXAM DATE/TIME: 04/04/2021 11:02 AM COMPARISON: 11/17/2020 FINDINGS: Lines, Tubes, and Devices: Interval placement of right internal jugular Port-A-Cath terminating in th e lower SVC. Cardiomediastinal Silhouette: Normal heart size. Lungs and Pleura: No evidence of focal airspace consolidation or pleural effusion. Mass in the right lower lobe appears smaller compared to the prior exam. Pulmonary vasculature unremarkable. Bones and Soft Tissues: Degenerative changes in the thoracic spine. IMPRESSION: No evidence of acute cardiopulmonary abnormality. Suspected decrease in size of the right lower lobe mass. Electronically signed by: Celestino Rodriguez DO (04/04/2021 11:45 AM) [id number]
== END ==
LOC: RAD 10:38
PROVIDERS: ATTEND Physician Assistant
DX: C34.11 Malignant neoplasm of upper lobe, right bronchus or lung (principal); M47.814 Spondylosis without myelopathy or radiculopathy, thoracic region
CPT/HCPCS: 71046

== ENCOUNTER → 2021-04-11 | Outpatient (CLI) | payer OTHER ==
[2021-03-14 14:34] VITALS: BP 123/66
[2021-04-11 10:21] LABS: BASO % 1 % (0-3); EOS % 1 % (0-3); HEMATOCRIT 24.3 % (36.0-47.0); HEMOGLOBIN 8.2 g/dL (12.0-15.5); LYMPH # 0.5 x10^3/uL (1.0-4.8); LYMPH % 27 % (24-48); MEAN CORPUSCULAR HEMOGLOBIN 35 pg (25-35); MEAN CORPUSCULAR HGB CONC 34 g/dL (31-37); MEAN CORPUSCULAR VOLUME 103 fL (79-100); MONO # 0.3 x10^3/uL (0.0-1.1); MONO % 17 % (0-9); NEUT % 55 % (31-73); PLATELET COUNT 192 x10^3/uL (140-400); RED BLOOD COUNT 2.35 x10^6/uL (3.50-5.40); RED CELL DISTRIBUTION WIDTH 18.6 % (11.5-14.5)
[2021-04-11 10:25] LABS: WHITE BLOOD COUNT 1.8 x10^3/uL (4.0-11.0)
[2021-04-11 10:30] LABS: CALCIUM 8.4 mg/dL (8.5-10.1); CREATININE 0.9 mg/dL (0.6-1.0); GFR 64.3; POTASSIUM 3.9 mmol/L (3.5-5.1)
[2021-04-11 10:37] LABS: ALBUMIN 3.3 g/dL (3.4-5.0); ALBUMIN/GLOBULIN RATIO 0.9 (1.0-1.7); TOTAL BILIRUBIN 0.4 mg/dL (0.2-1.0); TOTAL PROTEIN 6.9 g/dL (6.4-8.2)
[2021-04-11 13:17] LABS: % BASOS 1 % (0-3); % LYMPHS 11 % (24-48); % MONOS 4 % (0-10); % SEGS 84 % (35-66); PLT ESTIMATE ADEQUATE (ADEQUATE)
== END ==
LOC: ONCLAB 09:51
PROVIDERS: ATTEND Internal Medicine Hematology & Oncology
DX: C34.11 Malignant neoplasm of upper lobe, right bronchus or lung (principal)
CPT/HCPCS: 36415; 80053; 85007; 85025

== ENCOUNTER → 2021-04-25 | Outpatient (CLI) | payer OTHER ==
[2021-04-25 11:06] LABS: BASO % 1 % (0-3); EOS # 0.1 x10^3/uL (0.0-0.7); EOS % 1 % (0-3); HEMATOCRIT 27.9 % (36.0-47.0); HEMOGLOBIN 9.3 g/dL (12.0-15.5); LYMPH % 24 % (24-48); MEAN CORPUSCULAR HEMOGLOBIN 37 pg (25-35); MEAN CORPUSCULAR HGB CONC 33 g/dL (31-37); MEAN CORPUSCULAR VOLUME 109 fL (79-100); MONO # 0.3 x10^3/uL (0.0-1.1); MONO % 8 % (0-9); NEUT # 2.6 x10^3/uL (1.8-7.7); NEUT % 66 % (31-73); PLATELET COUNT 240 x10^3/uL (140-400); RED BLOOD COUNT 2.56 x10^6/uL (3.50-5.40); RED CELL DISTRIBUTION WIDTH 21.6 % (11.5-14.5); WHITE BLOOD COUNT 3.9 x10^3/uL (4.0-11.0)
[2021-04-25 11:10] LABS: CALCIUM 8.3 mg/dL (8.5-10.1); GFR 56.9; POTASSIUM 4.5 mmol/L (3.5-5.1)
[2021-04-25 11:15] LABS: ALBUMIN 3.1 g/dL (3.4-5.0); ALBUMIN/GLOBULIN RATIO 0.7 (1.0-1.7); TOTAL BILIRUBIN 0.3 mg/dL (0.2-1.0); TOTAL PROTEIN 7.4 g/dL (6.4-8.2)
[2021-04-25 12:57] LABS: PLT ESTIMATE ADEQUATE (ADEQUATE)
[2021-04-25 12:58] LABS: ANISOCYTOSIS PRESENT
== END ==
LOC: ONCLAB 10:05
PROVIDERS: ATTEND Internal Medicine Hematology & Oncology
DX: C34.11 Malignant neoplasm of upper lobe, right bronchus or lung (principal)
CPT/HCPCS: 36415; 80053; 85025

== ENCOUNTER → 2021-05-17 | Outpatient (CLI) | payer OTHER ==
[2021-05-17 11:05] LABS: BASO % 1 % (0-3); EOS # 0.1 x10^3/uL (0.0-0.7); EOS % 2 % (0-3); HEMATOCRIT 26.6 % (36.0-47.0); LYMPH # 0.9 x10^3/uL (1.0-4.8); LYMPH % 26 % (24-48); MEAN CORPUSCULAR HEMOGLOBIN 38 pg (25-35); MEAN CORPUSCULAR HGB CONC 34 g/dL (31-37); MEAN CORPUSCULAR VOLUME 113 fL (79-100); MONO # 0.3 x10^3/uL (0.0-1.1); MONO % 8 % (0-9); NEUT # 2.2 x10^3/uL (1.8-7.7); NEUT % 63 % (31-73); PLATELET COUNT 217 x10^3/uL (140-400); RED BLOOD COUNT 2.37 x10^6/uL (3.50-5.40); WHITE BLOOD COUNT 3.5 x10^3/uL (4.0-11.0)
[2021-05-17 11:20] LABS: CALCIUM 8.1 mg/dL (8.5-10.1); CREATININE 0.8 mg/dL (0.6-1.0); GFR 73.7; POTASSIUM 3.5 mmol/L (3.5-5.1)
[2021-05-17 11:26] LABS: ALBUMIN 3.3 g/dL (3.4-5.0); ALBUMIN/GLOBULIN RATIO 0.8 (1.0-1.7); TOTAL BILIRUBIN 0.3 mg/dL (0.2-1.0); TOTAL PROTEIN 7.5 g/dL (6.4-8.2)
== END ==
LOC: ONCLAB 10:40
PROVIDERS: ATTEND Physician Assistant
DX: C34.11 Malignant neoplasm of upper lobe, right bronchus or lung (principal)
CPT/HCPCS: 36415; 80053; 85025

== ENCOUNTER → 2021-05-24 | Outpatient (CLI) | payer OTHER ==
--- NOTE | 2021-05-24 13:08 | RAD ---
STUDY: CT chest without contrast INDICATION: Lung adenocarcinoma. COMPARISON: Most recent CT chest 11/11/2020; PET/CT 12/09/2020 TECHNIQUE: Helical CT imaging of the chest performed without the use of intravenous contrast. Sagitta l and coronal reformats were obtained. One or more of the following individualized dose reduction techniques were utilized for this examinat ion: 1. Automated exposure control 2. Adjustment of the mA and/or kV according to patient size 3. Use of iterative reconstruction technique. FINDINGS: Lungs: The dominant right lower lobe mass has decreased in size now measuring 2.3 x 1.3 x 1.2 cm comp ared to 3.7 x 3 x 3.7 cm. An adjacent nodule located medially has also decreased in size. The smaller nodule is difficult to closely measure given the absence of intravenous contrast and its location im mediately adjacent to vessels but is estimated at up to 0.7 cm while previously 1.5 cm. A millimetric nodule at the more cephalad aspect of the right lower lobe, image 30 series 3, is unchanged as is a small triangular nodule within the right middle lobe on image 42 series 3. Thin bandlike density/atel ectasis at the lower aspect of the right lower lobe. No significant new nodule on the left. No pleura l effusion. Patent central airways. Vasculature: Right chest wall Port-A-Cath terminates within the SVC. Mild scattered calcific atherosc lerosis. Unchanged aortic caliber. Mediastinum/david: No lymphadenopathy by size criteria. Neck/axilla/chest wall: Unchanged hypoattenuating left thyroid lobe nodule. Axillary lymph nodes are subcentimeter in size. Bones: Chronic deformity at the proximal right humerus and a chronic deformity of the sternum. Scatte red degenerative changes. Upper abdomen: No newly apparent abnormality. IMPRESSION: Both the dominant right lower lobe mass and the adjacent satellite nodule have decreased from compari son exams in keeping with a positive treatment response. The mass now measures 2.3 x 1.3 x 1.2 cm com pared to 3.7 x 3 x 3.7 cm. The satellite nodule is measured at up to 0.7 cm compared to 1.5 cm. No ne w or enlarging nodule or lymphadenopathy. Electronically signed by: JORGE QUINTERO MD (05/24/2021 1:05 PM) [facility]
== END ==
LOC: CT 09:48
PROVIDERS: ATTEND Internal Medicine Hematology & Oncology
DX: C34.11 Malignant neoplasm of upper lobe, right bronchus or lung (principal); R91.8 Other nonspecific abnormal finding of lung field; J44.9 Chronic obstructive pulmonary disease, unspecified; E04.1 Nontoxic single thyroid nodule
CPT/HCPCS: 71250

== ENCOUNTER → 2021-05-24 | Outpatient (CLI) | payer OTHER ==
[2021-05-24 10:58] LABS: BASO % 1 % (0-3); EOS # 0.1 x10^3/uL (0.0-0.7); EOS % 2 % (0-3); HEMATOCRIT 28.2 % (36.0-47.0); HEMOGLOBIN 9.4 g/dL (12.0-15.5); LYMPH # 0.8 x10^3/uL (1.0-4.8); LYMPH % 20 % (24-48); MEAN CORPUSCULAR HEMOGLOBIN 38 pg (25-35); MEAN CORPUSCULAR HGB CONC 34 g/dL (31-37); MEAN CORPUSCULAR VOLUME 114 fL (79-100); MONO # 0.3 x10^3/uL (0.0-1.1); MONO % 8 % (0-9); NEUT # 2.7 x10^3/uL (1.8-7.7); NEUT % 69 % (31-73); PLATELET COUNT 243 x10^3/uL (140-400); RED BLOOD COUNT 2.47 x10^6/uL (3.50-5.40); RED CELL DISTRIBUTION WIDTH 17.8 % (11.5-14.5)
[2021-05-24 11:13] LABS: CALCIUM 8.1 mg/dL (8.5-10.1); CREATININE 0.9 mg/dL (0.6-1.0); GFR 64.3; POTASSIUM 4.4 mmol/L (3.5-5.1)
[2021-05-24 11:20] LABS: ALBUMIN 3.5 g/dL (3.4-5.0); ALBUMIN/GLOBULIN RATIO 0.9 (1.0-1.7); TOTAL BILIRUBIN 0.4 mg/dL (0.2-1.0); TOTAL PROTEIN 7.5 g/dL (6.4-8.2)
[2021-05-24 11:46] LABS: ANISOCYTOSIS SLIGHT; PLT ESTIMATE ADEQUATE (ADEQUATE)
== END ==
LOC: ONCLAB 10:20
PROVIDERS: ATTEND Physician Assistant
DX: C34.11 Malignant neoplasm of upper lobe, right bronchus or lung (principal)
CPT/HCPCS: 36415; 80053; 85025

== ENCOUNTER → 2021-05-31 | Outpatient (CLI) | payer OTHER ==
[2021-05-31 10:15] LABS: BASO % 1 % (0-3); EOS # 0.1 x10^3/uL (0.0-0.7); EOS % 3 % (0-3); HEMATOCRIT 29.1 % (36.0-47.0); HEMOGLOBIN 9.8 g/dL (12.0-15.5); LYMPH # 0.9 x10^3/uL (1.0-4.8); LYMPH % 23 % (24-48); MEAN CORPUSCULAR HEMOGLOBIN 39 pg (25-35); MEAN CORPUSCULAR HGB CONC 34 g/dL (31-37); MEAN CORPUSCULAR VOLUME 114 fL (79-100); MONO # 0.3 x10^3/uL (0.0-1.1); MONO % 9 % (0-9); NEUT # 2.5 x10^3/uL (1.8-7.7); NEUT % 64 % (31-73); PLATELET COUNT 248 x10^3/uL (140-400); RED BLOOD COUNT 2.54 x10^6/uL (3.50-5.40); RED CELL DISTRIBUTION WIDTH 16.2 % (11.5-14.5)
[2021-05-31 10:19] LABS: WHITE BLOOD COUNT 3.8 x10^3/uL (4.0-11.0)
[2021-05-31 10:35] LABS: CALCIUM 7.9 mg/dL (8.5-10.1); CREATININE 0.8 mg/dL (0.6-1.0); GFR 73.7; POTASSIUM 3.9 mmol/L (3.5-5.1)
[2021-05-31 10:41] LABS: ALBUMIN 3.3 g/dL (3.4-5.0); ALBUMIN/GLOBULIN RATIO 0.9 (1.0-1.7); TOTAL BILIRUBIN 0.2 mg/dL (0.2-1.0); TOTAL PROTEIN 7.1 g/dL (6.4-8.2)
== END ==
LOC: ONCLAB 09:52
PROVIDERS: ATTEND Internal Medicine Hematology & Oncology
DX: C34.11 Malignant neoplasm of upper lobe, right bronchus or lung (principal)
CPT/HCPCS: 36415; 80053; 83615; 85025

== ENCOUNTER → 2021-06-16 | Outpatient (CLI) | payer OTHER ==
[2021-06-16 09:44] LABS: BASO % 1 % (0-3); EOS # 0.2 x10^3/uL (0.0-0.7); EOS % 4 % (0-3); HEMATOCRIT 29.9 % (36.0-47.0); HEMOGLOBIN 9.7 g/dL (12.0-15.5); LYMPH # 0.6 x10^3/uL (1.0-4.8); LYMPH % 15 % (24-48); MEAN CORPUSCULAR HEMOGLOBIN 37 pg (25-35); MEAN CORPUSCULAR HGB CONC 33 g/dL (31-37); MEAN CORPUSCULAR VOLUME 115 fL (79-100); MONO # 0.3 x10^3/uL (0.0-1.1); MONO % 8 % (0-9); NEUT # 2.9 x10^3/uL (1.8-7.7); NEUT % 73 % (31-73); PLATELET COUNT 242 x10^3/uL (140-400); RED CELL DISTRIBUTION WIDTH 14.7 % (11.5-14.5)
[2021-06-16 09:57] LABS: CALCIUM 7.5 mg/dL (8.5-10.1); CREATININE 1.1 mg/dL (0.6-1.0); POTASSIUM 4.1 mmol/L (3.5-5.1)
[2021-06-16 10:02] LABS: ALBUMIN 3.1 g/dL (3.4-5.0); ALBUMIN/GLOBULIN RATIO 0.8 (1.0-1.7); TOTAL BILIRUBIN 0.3 mg/dL (0.2-1.0); TOTAL PROTEIN 6.9 g/dL (6.4-8.2)
== END ==
LOC: ONCLAB 09:34
PROVIDERS: ATTEND Internal Medicine Hematology & Oncology
DX: C34.11 Malignant neoplasm of upper lobe, right bronchus or lung (principal)
CPT/HCPCS: 36415; 80053; 83615; 85025

== ENCOUNTER → 2021-06-16 | Outpatient (CLI) | payer OTHER ==
--- NOTE | 2021-06-16 10:18 | RAD ---
EXAM: Pelvis and right hip, 2 views. HISTORY: Pain. COMPARISON: None. FINDINGS: A frontal view of the pelvis and frog-leg view the right hip are obtained. There is no frac ture, dislocation or subluxation. There is mild marginal left femoral head spurring. There is degener ative change at the lower lumbar levels. IMPRESSION: No acute osseous finding. Electronically signed by: Leyla Garcia MD (06/16/2021 10:16 AM) [id number]
== END ==
LOC: RAD 09:28
PROVIDERS: ATTEND Internal Medicine Hematology & Oncology
DX: M47.816 Spondylosis without myelopathy or radiculopathy, lumbar region (principal); M25.551 Pain in right hip
CPT/HCPCS: 73501

== ENCOUNTER → 2021-07-07 | Outpatient (CLI) | payer OTHER ==
[2021-07-07 11:22] LABS: BASO % 1 % (0-3); EOS # 0.1 x10^3/uL (0.0-0.7); EOS % 3 % (0-3); HEMOGLOBIN 10.1 g/dL (12.0-15.5); LYMPH # 0.7 x10^3/uL (1.0-4.8); LYMPH % 19 % (24-48); MEAN CORPUSCULAR HEMOGLOBIN 38 pg (25-35); MEAN CORPUSCULAR HGB CONC 34 g/dL (31-37); MEAN CORPUSCULAR VOLUME 114 fL (79-100); MONO # 0.3 x10^3/uL (0.0-1.1); MONO % 9 % (0-9); NEUT # 2.5 x10^3/uL (1.8-7.7); NEUT % 69 % (31-73); PLATELET COUNT 232 x10^3/uL (140-400); RED BLOOD COUNT 2.64 x10^6/uL (3.50-5.40); RED CELL DISTRIBUTION WIDTH 14.9 % (11.5-14.5); WHITE BLOOD COUNT 3.7 x10^3/uL (4.0-11.0)
[2021-07-07 11:33] LABS: CALCIUM 8.9 mg/dL (8.5-10.1); CREATININE 0.9 mg/dL (0.6-1.0); GFR 64.3; POTASSIUM 3.6 mmol/L (3.5-5.1)
[2021-07-07 11:41] LABS: ALBUMIN 3.6 g/dL (3.4-5.0); TOTAL BILIRUBIN 0.4 mg/dL (0.2-1.0); TOTAL PROTEIN 7.3 g/dL (6.4-8.2)
[2021-07-07 12:35] LABS: PLT ESTIMATE ADEQUATE (ADEQUATE)
== END ==
LOC: ONCLAB 11:03
PROVIDERS: ATTEND Internal Medicine Hematology & Oncology
DX: C34.11 Malignant neoplasm of upper lobe, right bronchus or lung (principal); E03.9 Hypothyroidism, unspecified
CPT/HCPCS: 36415; 80053; 84443; 85025

== ENCOUNTER → 2021-07-21 | Outpatient (CLI) | payer OTHER ==
[2021-07-21 10:47] LABS: BASO % 1 % (0-3); EOS # 0.2 x10^3/uL (0.0-0.7); EOS % 4 % (0-3); HEMATOCRIT 31.2 % (36.0-47.0); HEMOGLOBIN 10.3 g/dL (12.0-15.5); LYMPH # 0.6 x10^3/uL (1.0-4.8); LYMPH % 14 % (24-48); MEAN CORPUSCULAR HEMOGLOBIN 37 pg (25-35); MEAN CORPUSCULAR HGB CONC 33 g/dL (31-37); MEAN CORPUSCULAR VOLUME 113 fL (79-100); MONO # 0.4 x10^3/uL (0.0-1.1); MONO % 8 % (0-9); NEUT # 3.3 x10^3/uL (1.8-7.7); NEUT % 73 % (31-73); PLATELET COUNT 204 x10^3/uL (140-400); RED BLOOD COUNT 2.76 x10^6/uL (3.50-5.40); RED CELL DISTRIBUTION WIDTH 14.6 % (11.5-14.5)
[2021-07-21 10:50] LABS: WHITE BLOOD COUNT 4.6 x10^3/uL (4.0-11.0)
[2021-07-21 10:52] LABS: CALCIUM 8.6 mg/dL (8.5-10.1); CREATININE 0.8 mg/dL (0.6-1.0); GFR 73.7; POTASSIUM 3.6 mmol/L (3.5-5.1)
[2021-07-21 10:58] LABS: ALBUMIN 3.3 g/dL (3.4-5.0); ALBUMIN/GLOBULIN RATIO 0.9 (1.0-1.7); TOTAL BILIRUBIN 0.4 mg/dL (0.2-1.0); TOTAL PROTEIN 7.1 g/dL (6.4-8.2)
== END ==
LOC: ONCLAB 10:27
PROVIDERS: ATTEND Internal Medicine Hematology & Oncology
DX: C34.11 Malignant neoplasm of upper lobe, right bronchus or lung (principal)
CPT/HCPCS: 36415; 80053; 85025

== ENCOUNTER 2021-09-10 13:30 | Emergency (ER) | payer OTHER ==
[~2021-09-10] VITALS: Ht 167.6 cm; Wt 80.0 kg
[~2021-09-10 13:30] MED LIST changes: +ALPR1TAB6 PO; +CITA20TA9 PO; +DEXA4TAB63 PO; +OXYC1TAB15 PO; +PANT40TA77 PO
--- NOTE | 2021-09-10 13:50 | PHYS DOC ---
Past Medical History Additional Past Medical Histor: LUNG CA, POOR HISTORIAN Past Surgical History: No Surgical History Additional Past Surgical Histo: POOR HISTORIAN Smoking Status: Light Tobacco Smoker Alcohol Use: Rarely General Adult EDM: Chief Complaint: MECHANICAL FALL HPI: HPI: Patient is a 60 year old female with a history of lung cancer with mets to the brain presenting to the ED today to be evaluated after falling. Patient is in a [facility], she states she was walking on door somebody sitting in a chair, she states she tripped on the chair and fell landing on her right side. She is complaining of right shoulder pain, right elbow pain, right forearm pain, right hip pain. Denies any loss of consciousness, states she hit her head on the ground. States she is in "all sorts of blood thinners and narcotics". She states her last chemo was 2 days ago. Denies any neck pain. Patient reports frequent falls. Rates the pain as mild and intermittent worse on the right hip. Denies anything specifically relieving the pain but states movement worsens the pain. She states she was able to get up after falling and ambulated Review of Systems: Review of Systems: Constitutional: Denies fever or chills. [] Eyes: Denies change in visual acuity. [] HENT: Denies nasal congestion or sore throat. [] Respiratory: Denies cough or shortness of breath. [] Cardiovascular: Denies chest pain or edema. [] GI: Denies abdominal pain, nausea, vomiting, bloody stools or diarrhea. [] : Denies dysuria. [] Musculoskeletal: Reports right shoulder pain, right elbow pain, right forearm pain, reports right hip pain, denies back pain Integument: Denies rash. [] Neurologic: Reports falling down and hitting her head on the ground. Denies headache, focal weakness or sensory changes. [] Psychiatric: Denies depression or anxiety. [] Heart Score: C/O Chest Pain: N/A Risk Factors: Risk Factors: DM, Current or recent (<one month) smoker, HTN, HLP, family history of CAD, obesity. Risk Scores: Score 0 - 3: 2.5% MACE over next 6 weeks - Discharge Home Score 4 - 6: 20.3% MACE over next 6 weeks - Admit for Clinical Observation Score 7 - 10: 72.7% MACE over next 6 weeks - Early Invasive Strategies Allergies: Allergies: Allergies Coded Allergies Type Severity Reaction Last Updated Verified Fish Containing Products Adverse Reaction Intermediate Nausea and Vomiting 09/03/21 Yes shellfish derived Adverse Reaction Intermediate Nausea and Vomiting 09/03/21 Yes shrimp Adverse Reaction Intermediate Nausea and Vomiting 09/03/21 Yes Physical Exam: PE: Constitutional: Well developed, well nourished, no acute distress, non-toxic appearance. [] HENT: Normocephalic, atraumatic, bilateral external ears normal, oropharynx moist, no oral exudates, nose normal. [] Eyes: PERRLA, EOMI, conjunctiva normal, no discharge. [] Neck: Normal range of motion, no tenderness, supple, no stridor. [] Cardiovascular:Heart rate regular rhythm, no murmur [] Lungs & Thorax: Bilateral breath sounds clear to auscultation [] Abdomen: Bowel sounds normal, soft, no tenderness, no masses, no pulsatile masses. [] Skin: Warm, dry, bruises noted to bilateral upper and lower extremities in different stages of healing from multiple falls Back: No tenderness, no CVA tenderness. [] Extremities: Tenderness on palpation of the right shoulder, right forearm and right elbow,, no cyanosis, no clubbing, full range of motion to the right shoulder, right elbow, right forearm, adequate plantarflexion or dorsiflexion of the right forearm, full range of motion to the right fingers adequate radial, medial, ulnar sensation to the right fingers. +2 right radial pulse., no edema. Bilateral lower extremities with no obvious deformity, no shortening of the right hip, full passive range of motion to the right hip including internal rotation and external rotation. +2 right pedal pulse. Cap refill less than 2 seconds to right lower extremities, +2 right pedal pulse Neurologic: Alert and oriented X 3, normal motor function, normal sensory function, no focal deficits noted. Cranial nerves II through XII intact Psychologic: Affect normal, judgement normal, mood normal. [] Current Patient Data: Vital Signs: Vital Signs Date Time Temp Pulse Resp B/P (MAP) Pulse Ox O2 Delivery O2 Flow Rate FiO2 09/10/21 13:37 98.0 98 20 136/74 (94) 99 98.0 EKG: EKG: [] Radiology/Procedures: Radiology/Procedures: []PROCEDURE: HIP RIGHT 2V WITH PELVIS XR FOREARM_RIGHT 2 VIEWS, XR ELBOW_RIGHT, XR RIGHT HIP (WITH OR WITHOUT PELVIS) 2 VIEWS, XR SHOULDER_RIGHT 2+ VIEWS Clinical indications: Reason: fall pain / Spl. Instructions: / History: Findings: Right hip: No acute fracture or dislocation or lytic process is seen. Right elbow: No joint effusion is seen. No acute fracture or dislocation or lytic process is evident. Accessory ossification centers of the lateral epicondyle are seen. Right forearm: No acute fracture or dislocation or lytic process is seen. Right shoulder: Comparison is made to prior study dated September 05, 2021. Old healed fracture of the proximal right humeral metaphysis is seen. There is a nondisplaced acute-appearing fracture of the greater tubercle. No dislocation of the glenohumeral joint is seen. No AC joint separation is evident. No lytic process is seen. IMPRESSION: New finding since September 05, 2021 of a nondisplaced fracture of the gre ater tubercle of the proximal right humerus. Electronically signed by: Kyung Hahn MD (09/10/2021 2:45 PM) [id number] DICTATED and SIGNED BY: KYUNG HAHN MD DATE: 09/10/21 1441 PROCEDURE: CT HEAD AND CERVICAL SPINE WO CT head without contrast. CT cervical spine without contrast. PQRS statement: CT scans at this facility use dose reduction including either automated exposure control, iterative reconstructions, and /or weight based radiation dosing via mA and kV modification when appropriate to reduce radiation dose to as low as reasonably achievable. HISTORY: Fell and hit head on the ground. Pain. 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 Mass in the cerebellar vermis with surrounding edema, compressing the fourth ventricle resulting in obstructive hydrocephalus with dilation of the third and lateral ventricles this is similar to the prior exam. Other masses of the bilateral cerebral hemispheres with surrounding edema seen to better detail on prior MR imaging again noted. No midline shift. No acute hyperdense hemorrhage. No new infarct. Orbits, mastoids and bones are unremarkable. IMPRESSION: Intracranial metastatic disease with supratentorial and infratentorial solid and cystic masses with surrounding edema again demonstrated. Mass of the cerebellum and vermis compresses the fourth ventricle and contributes to obstructive hydrocephalus with enlargement of the cerebral aqueduct, third ventricle and lateral ventricles. These findings are stable to the prior MRI from August 2021. CT cervical spine findings: Craniocervical junction is intact. Cervical vertebral body height and alignment intact. No fracture of the cervical spine. Cervical disc height loss and disc osteophytes, uncovertebral and facet spurring at several levels with multilevel neural foraminal stenoses and probable spinal canal stenosis at C5-C6 and C6-C7. Lung apices and peripheral tissues unremarkable. 1.2 cm hypodense left thyroid nodule. IMPRESSION: No acute osseous injury of the cervical spine. Cervical disc disease. Electronically signed by: Louisa Tobar MD (09/10/2021 2:45 PM) [id number] DICTATED and SIGNED BY: LOUISA TOBAR MD DATE: 09/10/21 1437 Course & Med Decision Making: Course & Med Decision Making Pertinent Labs and Imaging studies reviewed. (See chart for details) This a 60-year-old female patient presented to the ED today to be evaluated after falling, complaining of hitting her head on the ground. Complaining of right shoulder pain, right elbow pain, right forearm pain, right hip pain. CT of the head noted for stable brain mass patient aware, cervical spine Ct are negative for any acute findings, right shoulder x-rays noted for nondisplaced fracture of the greater tubercle of the proximal right humerus, sling provided to the right upper extremity applied by the ED RN, neurovascular exam done by the abdomen is normal. Right forearm x-rays are negative, right elbow x-rays are negative, right hip x-rays including pelvis are negative. Discharged back to the [facility]. Follow-up with Ortho in the course of this week. Marcela Disclaimer: Marcela Disclaimer: This electronic medical record was generated, in whole or in part, using a voice recognition dictation system. Departure Departure Impression: Primary Impression: Fall from standing Qualified Codes: W19.XXXA - Unspecified fall, initial encounter Additional Impressions: Fracture, humerus closed Qualified Codes: S42.294A - Other nondisplaced fracture of upper end of right humerus, initial encounter for closed fracture Hip pain, right Elbow pain, right Disposition: 01 HOME / SELF CARE / HOMELESS Condition: STABLE Referrals: NO PCP (PCP) SCOT HUGHES Jr. DO please follow up with the provided orthopedic doctor, call them today and set up a follow-up appointment. Patient Instructions: Hip Pain, Humerus Fracture, Treated with Immobilization Additional Instructions: You were evaluated in the emergency room, your CT of the head, cervical spine are negative for any acute findings, your right elbow x-rays, right forearm x- rays and right hip x-rays including pelvis are negative for any acute findings. Your right shoulder x-rays were noted for nondisplaced fracture of the greater tubercle of the proximal right humerus. Wear the sling provided. Please contact to the orthopedic doctor tomorrow morning and set up a follow-up appointment in the clinic. Ice to the affected extremity. DEVEN BALBUENA APRN September 10, 2021 13:50
--- NOTE | 2021-09-10 14:47 | RAD ---
XR FOREARM_RIGHT 2 VIEWS, XR ELBOW_RIGHT, XR RIGHT HIP (WITH OR WITHOUT PELVIS) 2 VIEWS, XR SHOULDER_ RIGHT 2+ VIEWS Clinical indications: Reason: fall pain / Spl. Instructions: / History: Findings: Right hip: No acute fracture or dislocation or lytic process is seen. Right elbow: No joint effusion is seen. No acute fracture or dislocation or lytic process is evident. Accessory ossification centers of the lateral epicondyle are seen. Right forearm: No acute fracture or dislocation or lytic process is seen. Right shoulder: Comparison is made to prior study dated September 05, 2021. Old healed fracture of the proxi mal right humeral metaphysis is seen. There is a nondisplaced acute-appearing fracture of the greater tubercle. No dislocation of the glenohumeral joint is seen. No AC joint separation is evident. No ly tic process is seen. IMPRESSION: New finding since September 05, 2021 of a nondisplaced fracture of the greater tubercle of the p roximal right humerus. Electronically signed by: Luis Hahn MD (09/10/2021 2:45 PM) [id number]
--- NOTE | 2021-09-10 14:47 | RAD ---
CT head without contrast. CT cervical spine without contrast. PQRS statement: CT scans at this facility use dose reduction including either automated exposure cont rol, iterative reconstructions, and /or weight based radiation dosing via mA and kV modification when appropriate to reduce radiation dose to as low as reasonably achievable. HISTORY: Fell and hit head on the ground. Pain. 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 Mass in the cerebellar vermis with surrounding edema, co mpressing the fourth ventricle resulting in obstructive hydrocephalus with dilation of the third and lateral ventricles this is similar to the prior exam. Other masses of the bilateral cerebral hemisphe res with surrounding edema seen to better detail on prior MR imaging again noted. No midline shift. N o acute hyperdense hemorrhage. No new infarct. Orbits, mastoids and bones are unremarkable. IMPRESSION: Intracranial metastatic disease with supratentorial and infratentorial solid and cystic m asses with surrounding edema again demonstrated. Mass of the cerebellum and vermis compresses the fou rth ventricle and contributes to obstructive hydrocephalus with enlargement of the cerebral aqueduct, third ventricle and lateral ventricles. These findings are stable to the prior MRI from August 2021. CT cervical spine findings: Craniocervical junction is intact. Cervical vertebral body height and ali gnment intact. No fracture of the cervical spine. Cervical disc height loss and disc osteophytes, unc overtebral and facet spurring at several levels with multilevel neural foraminal stenoses and probabl e spinal canal stenosis at C5-C6 and C6-C7. Lung apices and peripheral tissues unremarkable. 1.2 cm h ypodense left thyroid nodule. IMPRESSION: No acute osseous injury of the cervical spine. Cervical disc disease. Electronically signed by: Kurtis Tobar MD (09/10/2021 2:45 PM) [id number]
[2021-09-10 16:44] VITALS: BP 164/60
== END 2021-09-10 16:45 | disposition home or self-care (01) ==
LOC: ER 13:30
DX: S42.294A Other nondisplaced fracture of upper end of right humerus, initial encounter for closed fracture (principal); S40.022A Contusion of left upper arm, initial encounter; S40.021A Contusion of right upper arm, initial encounter; S80.12XA Contusion of left lower leg, initial encounter; S80.11XA Contusion of right lower leg, initial encounter; C78.00 Secondary malignant neoplasm of unspecified lung; C79.31 Secondary malignant neoplasm of brain; Z91.013 Allergy to seafood; W01.0XXA Fall on same level from slipping, tripping and stumbling without subsequent striking against object, initial encounter; Y93.01 Activity, walking, marching and hiking; Y92.89 Other specified places as the place of occurrence of the external cause; Y99.8 Other external cause status
CPT/HCPCS: 70450; 72125; 73030; 73070; 73090; 73502; 99284